=== PATIENT | female | born 1995 | race Hispanic/Latino ===

== ENCOUNTER 2019-11-23 21:01 | Inpatient (IN) | payer MEDICAID ==
[~2019-11-23] VITALS: Ht 162.6 cm; Wt 112.0 kg
[2019-11-23] MEDS ORDERED: OXYTOCIN-LR 20 UNITS/1000 ML 1,000 ML IV SCH (21:15)
[2019-11-23] MEDS ORDERED: AMPICILLIN 2GM+NS 100ML 100 ML IV SCH (21:15)
[2019-11-23] MEDS ORDERED: AMPICILLIN 2GM+NS 100ML 100 ML IV ONE (21:43)
[2019-11-23] MEDS ORDERED: LACTATED RINGERS 1000ML 1,000 ML IV ONE (21:43)
[2019-11-23 21:49] LABS: APPEARANCE,URINE Clear (CLEAR); BILIRUBIN,URINE Negative (NEGATIVE); COLOR,URINE Yellow (YELLOW); GLUCOSE, URINE (UA) Negative (NEGATIVE); KETONES,URINE Trace mg/dL (NEGATIVE); LEUKOCYTE ESTERASE ,URINE Negative (NEGATIVE); NITRATE,URINE Negative (NEGATIVE); OCCULT BLOOD,URINE Negative (NEGATIVE); PROTEIN,URINE Trace mg/dL (NEGATIVE)
[2019-11-23 22:03] LABS: HEMATOCRIT 37.2 % (36-48); MEAN CORPUSCULAR HEMOGLOBIN 28.5 pg (27.0-33.0); RED BLOOD CELL COUNT(AUTO) 4.18 MIL/uL (4.00-5.50); RED CELL DISTRIBUTION WIDTH 13.1 % (11.0-15.5); WHITE BLOOD COUNT (AUTO) 12.3 K/uL (4.8-10.8)
[2019-11-23 22:03] LABS: BACTERIA,URINE Few /HPF (None Seen); CALCIUM OXALATE CRYSTALS,UR Moderate /LPF (None Seen); MUCUS,URINE Few LPF (None Seen); SQUAMOUS EPITHELIAL CELL,UR 0-2 /HPF (0-2)
[2019-11-23 22:27] VITALS: BP 130/63
[2019-11-23] MEDS ORDERED: LACTATED RINGERS 500 ML 500 ML IV PRN (22:30)
[2019-11-23] MEDS ORDERED: EPHEDRINE SULFATE 50 MG/ML AMPULE IVP PRN (22:30)
[2019-11-23] MEDS ORDERED: NALOXONE HCL 0.4 MG/1 ML ML IV PRN (22:30)
[2019-11-23] MEDS ORDERED: PREN-196 PO (22:31)
[2019-11-24] MEDS ORDERED: OXYTOCIN 10 USP UNITS/ML 20 UNIT in LACTATED RINGERS 1000ML 1,000 ML IV SCH ×2
[2019-11-24 00:41] LABS: AMPHET/METH SCREEN,URINE NEGATIVE (NEGATIVE); BARBITURATE SCREEN, URINE NEGATIVE (NEGATIVE); BENZODIAZEPINES SCREEN,URINE NEGATIVE (NEGATIVE); CANNABINOID SCREEN,URINE NEGATIVE (NEGATIVE); COCAINE SCREEN,URINE NEGATIVE (NEGATIVE); OPIATE SCREEN,URINE NEGATIVE (NEGATIVE); PHENCYCLIDINE SCREEN,URINE NEGATIVE (NEGATIVE)
[2019-11-24] MEDS: AMPICILLIN 1GM+NS 50ML 50 ML IV SCH ×5 (01:52→22:48)
[2019-11-24] MEDS: LACTATED RINGERS 1000ML 1,000 ML IV PRN ×2 (05:19→07:27)
[2019-11-24 11:27] LABS: RAPID PLASMA REAGIN NONREACTIVE (NONREACTIVE)
[2019-11-24] MEDS: ROPIVACAINE 0.2% 100ML VIAL 100 ML EP SCH (15:12)
[2019-11-25] MEDS: ROPIVACAINE 0.2% 100ML VIAL 100 ML EP SCH (00:46)
[2019-11-25] MEDS ORDERED: OXYTOCIN-LR 20 UNITS/1000 ML 1,000 ML IV ONE ×2 (02:08→03:10)
[2019-11-25] MEDS ORDERED: LIDOCAINE HCL 1% 20 ML VIAL ONE (02:09)
--- NOTE | 2019-11-25 05:20 | NUR ---
assisted the pt. to go up to the bathroom and she voided 900 cc of urine with small lochia rubra. Kenia care done. Pt. comfortable at this time.
[2019-11-25 05:24] VITALS: BP 112/57
[2019-11-25] MEDS ORDERED: IBUPROFEN 600 MG TABLET ONE (05:39)
[2019-11-25] MEDS ORDERED: WITCH HAZEL 1 PAD TP PRN (05:45)
[2019-11-25] MEDS ORDERED: ACETAMINOPHEN-CODEINE 300/30MG TAB PO PRN (05:45)
[2019-11-25] MEDS ORDERED: BENZOCAINE/LANOLIN/ALOE VERA 60 ML AEROSOL TP PRN (05:45)
[2019-11-25] MEDS ORDERED: ACETAMINOPHEN 325 MG TAB PO PRN (05:45)
[2019-11-25] MEDS ORDERED: LANOLIN 30GM OINTMENT TP PRN (05:45)
[2019-11-25 07:26] VITALS: BP 108/54
[2019-11-25] MEDS: DOCUSATE SODIUM 100 MG CAP PO SCH ×2 (09:38→20:24)
[2019-11-25 10:13] LABS: HEPATITIS Bs ANTIGEN SCREEN P Negative (Negative)
[2019-11-25 11:42] VITALS: BP 114/56
[2019-11-25] MEDS: IBUPROFEN 600 MG TABLET PO PRN (16:31)
[2019-11-25 16:45] VITALS: BP 116/62
[2019-11-25 19:47] VITALS: BP 114/63
[2019-11-25] MEDS: AMPICILLIN 1GM+NS 50ML 50 ML IV SCH ×2 (21:24→21:25)
[2019-11-25 23:09] VITALS: BP 118/69
[2019-11-26 03:47] VITALS: BP 97/58
[2019-11-26 07:35] VITALS: BP 99/62
[2019-11-26 07:43] LABS: HEMATOCRIT 33.7 % (36-48); MEAN CORPUSCULAR HEMOGLOBIN 28.5 pg (27.0-33.0); MEAN CORPUSCULAR HGB CONC 31.8 g/dL (32.0-36.0); MEAN CORPUSCULAR VOLUME 89.9 fL (79-99); RED BLOOD CELL COUNT(AUTO) 3.75 MIL/uL (4.00-5.50); RED CELL DISTRIBUTION WIDTH 13.5 % (11.0-15.5); WHITE BLOOD COUNT (AUTO) 10.7 K/uL (4.8-10.8)
[2019-11-26] MEDS: DOCUSATE SODIUM 100 MG CAP PO SCH (09:34)
[2019-11-26] MEDS: IBUPROFEN 600 MG TABLET PO PRN (09:35)
--- NOTE | 2019-11-26 10:30 | NUR ---
DISCHARGE INSTRUCTIONS READ AND EXPLAINED TO PATIENT. QUESTIONS INVITED AND ANSWERED. RX FOR IBUPROFEN 600MG HANDED TO PATIENT. PATIENT VOICED UNDERSTANDING ON ALL INSTRUCTIONS.
--- NOTE | 2019-11-26 11:30 | NUR ---
PATIENT LEFT UNIT VIA WHEELCHAIR WITH BABY IN ARMS. PERSONAL VEHICLE USED FOR TRANSPORTATION ACCOMPANIED BY MOTHER. BABY SECURE IN CARSEAT. NO COMPLAINTS OR CONCERNS ADDRESSED FROM PATIENT ON DISCHARGE.
== END 2019-11-26 11:30 | disposition home or self-care (01) | DRG 560 ==
LOC: EDH 21:01 → LDH 21:02 → OBSVTOIN 21:02 → WSH 11-25 04:35
PROVIDERS: ADMIT Obstetrics & Gynecology; ATTEND Obstetrics & Gynecology
PROC: 10E0XZZ Delivery of Products of Conception, External Approach (ICD-10-PCS; principal; 2019-11-24)
PROC: 00HU33Z Insertion of Infusion Device into Spinal Canal, Percutaneous Approach (ICD-10-PCS; 2019-11-24)
PROC: 3E0R3BZ Introduction of Anesthetic Agent into Spinal Canal, Percutaneous Approach (ICD-10-PCS; 2019-11-24)
DX: O36.8130 Decreased fetal movements, third trimester, not applicable or unspecified (principal); Z3A.38 38 weeks gestation of pregnancy; Z37.0 Single live birth
CPT/HCPCS: 36415; 80305; 81001; 85027; 86592; 86701; 86850; 86900; 86901; 87340; 87390; A4314; G0378; J0290; J2590; J2795; J7120